=== PATIENT | female | born 1995 | race Hispanic/Latino ===

== ENCOUNTER 2020-09-23 18:27 | Emergency (ER) | payer OTHER, SELFPAY ==
[2020-09-23 18:37] VITALS: BP 129/88; PULSE 96; RESP 16; TEMP 37; O2SAT 99
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
== END 2020-09-23 19:35 | disposition home or self-care (01) ==
PROVIDERS: Emergency Provider Nurse Practitioner Family
DX: L08.9 Local infection of the skin and subcutaneous tissue, unspecified (principal); S91.101A Unspecified open wound of right great toe without damage to nail, initial encounter; S81.002A Unspecified open wound, left knee, initial encounter; S81.001A Unspecified open wound, right knee, initial encounter; S51.001A Unspecified open wound of right elbow, initial encounter; S91.302A Unspecified open wound, left foot, initial encounter; V28.4XXA Motorcycle driver injured in noncollision transport accident in traffic accident, initial encounter
CPT/HCPCS: 99213; G0463

== ENCOUNTER 2023-06-25 15:14 | Emergency (ER) | payer OTHER, SELFPAY ==
--- NOTE | ~2023-06-25 | XR_ITS ---
EXAMINATION: XR foot LT min 3V DATE: 06/25/2023 15:36 INDICATION: Left foot injury and pain. TECHNIQUE: 4 views of left foot were obtained. COMPARISON: None. FINDINGS: Bone alignment is normal. There is a lucent line overlying the plantar aspect of calcaneal tuberosity on a single view . Joint spaces are normal. IMPRESSION: 1. Lucent line overlying the plantar aspect of calcaneal tuberosity on a single view, which may be a nondisplaced fracture or an overlapping shadow from the soft tissue. Reviewed, dictated and finalized at location E. IMPRESSION: 1. Lucent line overlying the plantar aspect of calcaneal tuberosity on a single view, which may be a nondisplaced fracture or an overlapping shadow from the s oft tissue.
[2023-06-25 15:18] VITALS: BP 87/66; PULSE 100; RESP 18; TEMP 36.4; O2SAT 97
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
[2023-06-25] MEDS: IBUPROFEN 600 MG TABLET PO (15:42)
== END 2023-06-25 17:17 | disposition home or self-care (01) ==
PROVIDERS: Emergency Provider Nurse Practitioner Family
DX: S92.045A Nondisplaced other fracture of tuberosity of left calcaneus, initial encounter for closed fracture (principal); F17.210 Nicotine dependence, cigarettes, uncomplicated; W22.8XXA Striking against or struck by other objects, initial encounter
CPT/HCPCS: 29515; 73630; 99283; 99284; A9270